=== PATIENT | male | born 1980 | race Two or more races ===

== ENCOUNTER 2017-02-05 00:51 | Emergency (ER) | payer MEDICAID ==
[~2017-02-05] VITALS: Ht 177.8 cm; Wt 117.9 kg
[2017-02-05 00:59] VITALS: BP 175/113
== END 2017-02-05 01:43 | disposition home or self-care (01) ==
LOC: ER 00:54
DX: T16.2XXA Foreign body in left ear, initial encounter (principal); X58.XXXA Exposure to other specified factors, initial encounter; Y93.89 Activity, other specified; Y99.8 Other external cause status; Y92.89 Other specified places as the place of occurrence of the external cause